=== PATIENT | female | born 1965 | race Caucasian/White ===

== ENCOUNTER 2020-11-29 15:16 | Emergency (ER) | payer BC ==
[~2020-11-29] VITALS: Ht 157.5 cm; Wt 72.1 kg
[2020-11-29] MEDS ORDERED: PANTOPRAZOLE SODIUM 40 MG/VIAL (PROTONIX) IVP ONE (15:30)
[2020-11-29] MEDS ORDERED: LORazepam 2 MG/ML VIAL IVP ONE (15:45)
[2020-11-29] MEDS ORDERED: DIPHENHYDRAMINE INJ 50 MG/ML VIAL IVP ONE (15:45)
[2020-11-29 15:50] VITALS: BP_SYST 132
[2020-11-29] MEDS ORDERED: KETOROLAC TROMETHAMINE 60 MG/2 ML VIAL IM ONE (16:00)
[2020-11-29] MEDS ORDERED: NAPR-690 PO (17:17)
[2020-11-29 17:23] VITALS: BP_SYST 132
== END 2020-11-29 17:23 | disposition home or self-care (01) ==
LOC: SED 15:16
DX: M25.551 Pain in right hip (principal); I10 Essential (primary) hypertension; F32.9 Major depressive disorder, single episode, unspecified; Z79.899 Other long term (current) drug therapy
CPT/HCPCS: 72192; 76376; 96372; 99284; J1885

== ENCOUNTER 2022-04-20 12:42 | Emergency (ER) | payer BC ==
[~2022-04-20] VITALS: Ht 157.5 cm; Wt 70.3 kg
[~2022-04-20 12:42] MED LIST: NAPR-690 PO
[2022-04-20 13:41] VITALS: BP_SYST 147
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
--- NOTE | 2022-04-20 14:20 | NUR ---
Dr Patel evaluating patient at bedside
[2022-04-20] MEDS ORDERED: HYDR-3917 PO (16:20)
[2022-04-20] MEDS ORDERED: IBUP-1969 PO (16:20)
[2022-04-20 16:29] VITALS: BP_SYST 147
--- NOTE | 2022-04-20 16:29 | NUR ---
Patient given written and verbal discharge instructions and verbalizes understanding. ER MD discussed with patient the results and treatment provided. Patient in stable condition. ID arm band removed. No Rx given. Patient educated on pain management and to follow up with PMD. Pain Scale 0/10. Opportunity for questions provided and answered. Medication side effect fact sheet provided.
== END 2022-04-20 16:29 | disposition home or self-care (01) ==
LOC: SED 12:42
DX: R51.9 Headache, unspecified (principal); R11.2 Nausea with vomiting, unspecified; R42 Dizziness and giddiness; E78.5 Hyperlipidemia, unspecified; I10 Essential (primary) hypertension; Z79.899 Other long term (current) drug therapy
CPT/HCPCS: 70450-TC; 76376; 99284